=== PATIENT | male | born 1965 | race American Indian/Alaskan Native ===

== ENCOUNTER 2016-08-02 10:50 | Emergency (ER) | payer BC ==
[2016-08-02 11:31] LABS: Hemoglobin 14.7 gm/dl (11.8-15.2); Mean Corpuscular HGB Conc 33 % (32-34); Mean Corpuscular Hemoglobin 32 pg (28-32); Mean Corpuscular Volume 95 fl (84-94); Platelet Count 191 K/mm3 (140-440); Red Blood Count 4.61 M/mm3 (3.65-5.03); Red Cell Distribution Width 14.3 % (13.2-15.2); White Blood Count 6.6 K/mm3 (4.5-11.0)
[2016-08-02 11:34] LABS: Bilirubin,Urine NEG (Negative); Blood,Urine NEG (Negative); Ketones,Urine TR mg/dL (Negative); Leukocyte Esterase,Urine NEG (Negative); Mucus,Urine 3+ /HPF; Nitrite,Urine NEG (Negative)
[2016-08-02 11:45] LABS: Anion Gap 18 mmol/L; BUN/Creatinine Ratio 13.33; Blood Urea Nitrogen 12 mg/dL (9-20); Calcium 9.4 mg/dL (8.4-10.2); Carbon Dioxide 22 mmol/L (22-30); Chloride 97.7 mmol/L (98-107); Glucose 95 mg/dL (75-100); Potassium 3.9 mmol/L (3.6-5.0); Sodium 134 mmol/L (137-145)
[2016-08-02 14:18] LABS: Basophils % (Manual) 0 % (0.0-1.8); Blastocytes % (Manual) 0 %; Diff Status Complete; RBC Morphology Normal
[2016-08-02] MEDS ORDERED: NACL 0.9% 1000 ML 1,000 ML IV ONE (16:26)
[2016-08-02] MEDS ORDERED: MORPHINE IV ONE (16:26)
--- NOTE | 2016-08-02 16:39 | Emergency Department Report ---
HPI - General Chief Complaint: Headache Time Seen by Provider: 08/02/16 14:36 - HPI HPI: This is a 50-year-old Afro-[place] male who presents to the emergency department with a 5 day history of a constant generalized headache with some pain that radiates to the upper posterior portion of the left ear. He denies any vision change, ear pain, nausea, vomiting, shortness of breath, chest pain or fever. He has been taking [id number] pain medication including Goody powder and says that it only provided some temporary relief. His only past medical history is a recent diagnosis of hypertension. No recent travel or sick contacts at home. His primary care doctor is a Dr. fay. The patient also complains of some generalized weakness and some dark urine. ED Past Medical Hx - Past Medical History Previous Medical History?: Yes Hx Hypertension: Yes - Surgical History Additional Surgical History: Rotator cuff - Bilateral - Social History Smoking Status: Current Every Day Smoker Substance Use Type: None - Medications Home Medications: Home Medications Medication Instructions Recorded Confirmed Last Taken Type traMADol [Ultram] 50 mg PO Q6HR PRN #14 tablet 08/02/16 Unknown Rx ED Review of Systems ROS: Stated complaint: HEADACHE,DARK URINE Other details as noted in HPI Comment: All other systems reviewed and negative Constitutional: denies: chills, fever Eyes: denies: eye pain, eye discharge, vision change ENT: denies: ear pain, throat pain Respiratory: denies: cough, shortness of breath, wheezing Cardiovascular: denies: chest pain, palpitations Gastrointestinal: denies: abdominal pain, nausea, diarrhea Genitourinary: denies: urgency, dysuria Musculoskeletal: denies: back pain, joint swelling, arthralgia Skin: denies: rash, lesions Neurological: headache. denies: numbness Physical Exam - Physical Exam Vital Signs: Vital Signs 08/02/16 08/02/16 08/02/16 11:00 13:40 13:51 Temperature 98.4 F Pulse Rate 71 Respiratory 20 Rate Blood Pressure 121/84 128/82 O2 Sat by Pulse 99 100 99 Oximetry 08/02/16 14:00 Temperature Pulse Rate Respiratory Rate Blood Pressure 118/80 O2 Sat by Pulse 95 Oximetry Physical Exam: GENERAL: The patient is well-developed well-nourished. HEENT: Normocephalic. Atraumatic. Extraocular motions are intact. Patient has moist mucous membranes. Pupils equal reactive to light bilaterally. No nystagmus. There is no tenderness palpation over the mastoid processes. NECK: Supple. Trachea is midline. CHEST/LUNGS: Clear to auscultation. There is no respiratory distress noted. HEART/CARDIOVASCULAR: Regular. There is no tachycardia. There is no gallop rub or murmur. ABDOMEN: Abdomen is soft, nontender. Patient has normal bowel sounds. There is no abdominal distention. SKIN: There is no rash. There is no edema. There is no diaphoresis. NEURO: The patient is awake, alert, and oriented. The patient is cooperative. The patient has no focal neurologic deficits. The patient has normal speech. Cranial nerves II-12 grossly intact. MUSCULOSKELETAL: There is no tenderness or deformity. There is no limitation range of motion. There is no evidence of acute injury. ED Course Vital Signs 08/02/16 08/02/16 08/02/16 11:00 13:40 13:51 Temperature 98.4 F Pulse Rate 71 Respiratory 20 Rate Blood Pressure 121/84 128/82 O2 Sat by Pulse 99 100 99 Oximetry 08/02/16 14:00 Temperature Pulse Rate Respiratory Rate Blood Pressure 118/80 O2 Sat by Pulse 95 Oximetry ED Medical Decision Making - Lab Data Result diagrams: 08/02/16 11:17 08/02/16 11:17 - Radiology Data Radiology results: report reviewed CT of the head does not show any acute process including no hemorrhage, mass, shift, diffuse edema or skull fracture. - Medical Decision Making This is a 50-year-old male presents to the emergency department with complaint of a 5 day history of a generalized headache. He does not have any focal, motor or sensory deficits. Cranial nerves are intact. CT the head was done that does not show any acute bleed, shift, mass or any acute process. The patient's labs have been unremarkable and do not show any etiology of the patient's symptoms. He was given IV fluid, magnesium and morphine. He had some transient improvement of his headache but he still does have some residual headache. I spoke with the patient regarding the possible need for a lumbar puncture as he does not have any history of headache and it is been going on for 5 days. He did not have the exertional or significant acute onset presentation, and he does not have any family or personal history of aneurysm. However the patient refused the lumbar puncture at this time. Instead he would rather go home and try to rest and see if it goes away. He does understand the risks of leaving at this time including brain bleed, worsening of his headache, coma, disability or . He understands and says that he will return if there is no improvement or worsening of his headache. - Differential Diagnosis tension headache, migraine headache, cluster, subarachnoid Critical Care Time: No Critical care attestation.: If time is entered above; I have spent that time in minutes in the direct care of this critically ill patient, excluding procedure time. ED Disposition Clinical Impression: Headache Qualifiers: Headache type: unspecified Headache chronicity pattern: acute headache Disposition: DISCHARGED TO HOME OR SELFCARE Is pt being admited?: No Condition: Stable Instructions: Acute Headache (ED) Additional Instructions: Please follow-up with your primary care doctor in the next few days. Return to the emergency department immediately with any worsening of her headache, alteration in mental status or even if you do not get any improvement with the medication. You've been prescribed a medication that is sedating. Therefore this medication cannot be mixed with alcohol, or taken prior to driving, working , or being responsible for children. Prescriptions: traMADol [Ultram] 50 mg PO Q6HR PRN #14 tablet PRN Reason: Pain Referrals: PAUL ESTRELLA MD [Primary Care Provider] - 3-5 Days Time of Disposition: 19:29
[2016-08-02 17:25] VITALS: BP 124/80
--- NOTE | 2016-08-02 17:30 | Cat Scan Report ---
FINAL REPORT PROCEDURE: CT HEAD/BRAIN WO CON TECHNIQUE: Computerized tomography of the head was performed without contrast material. HISTORY: headache COMPARISON: No prior studies are available for comparison. FINDINGS: No CT evidence of intracranial mass, hemorrhage, acute territorial infarction, or hydrocephalus. Intracranial arteries are symmetric in density. No acute fracture is seen. Several circumscribed lucent lesions are seen in the skull, which are indeterminate. Visualized paranasal sinuses and mastoids are aerated. IMPRESSION: No CT evidence of acute intracranial abnormality. Several circumscribed subcentimeter lucent lesions in the skull are indeterminate, possibly related to arachnoid granulations. Correlate for focal symptoms.
[2016-08-02] MEDS ORDERED: MAGNESIUM SULFATE 2GM/50ML 2 GM/50 ML BAG IV ONE (18:02)
== END 2016-08-02 19:45 | disposition home or self-care (01) ==
LOC: ED 10:50
DX: R51 Headache (principal); I10 Essential (primary) hypertension; F17.200 Nicotine dependence, unspecified, uncomplicated
CPT/HCPCS: 36415; 70450; 80048; 81001; 82550; 82962; 84443; 85007; 85025; 96361; 96365; 96375; 99284; J2270; J3475; J7030